=== PATIENT | female | born 1945 | race Two or more races ===

== ENCOUNTER 2024-10-05 12:58 | Emergency (ER) | payer MEDICARE, MEDICAID, SELFPAY ==
[2024-10-05 13:02] VITALS: BP 145/84; PULSE 91; RESP 18; TEMP 37.4; O2SAT 91
[2024-10-05 13:11] VITALS: PULSE 92; RESP 18; O2SAT 95
[2024-10-05 13:28] VITALS: BMI 31.6
--- NOTE | 2024-10-05 13:44 | XR_ITS ---
Examination: Lumbar spine 3 views Technique one AP lateral coned lateral lower lumbar spine 3 views Exam date and time: October 05, 2024 at 1405 hrs. Indications: Patient fell today with injury to lower back, lower back pain. Findings: Prominent osteopenia Lumbar dextroscoliosis 10 degrees Stable alignment transpedicular lumbar fusion L4-S1 compared with July 20, 2023 Depression superior endplate L2 not visualized on the prior study which may be acute Impression: Mild acute appearing depression superior endplate L2, suggest CT scan lumbar spine without contrast follow-up
--- NOTE | 2024-10-05 13:45 | XR_ITS ---
Examination: AP chest single view Technique one AP supine portable chest single view Exam date and time: October 05, 2024 1411 hrs. Indications: Coughing beginning 3 days ago. Findings: Mild enlargement left ventricle Mild opacity left base retrocardiac Ectatic thoracic aorta Multiple ossified joint bodies left shoulder joint Bilateral advanced osteoarthritis glenohumeral joints Impression: Suspicious for early left base pneumonia
[2024-10-05] MEDS: IBUPROFEN TAB 600 MG TABLET PO (13:49)
[2024-10-05] MEDS: ACETAMINOPHEN 325 MG TABLET 650 MG PO (13:50)
[2024-10-05 14:06] LABS: Basophils # (Auto) 0.1 Thou/mm3 (0.0-0.2); Basophils % (Auto) 1 % (0-2.5); Eosinophils # (Auto) 0.1 Thou/mm3 (0.0-0.5); Eosinophils % (Auto) 2 % (0-10); Hematocrit 34.6 % (36.0-46.0); Hemoglobin 11.9 g/dL (12.0-16.0); Immature Granulocytes % (Auto) 1 % (0-0); Immature Granulocytes Auto 0.05 Thou/mm3 (0.00-0.00); Lymphocytes # (Auto) 1.1 Thou/mm3 (1.0-4.8); Lymphocytes % (Auto) 15 % (10-50); Mean Corpuscular HGB Conc 34.4 g/dl (31.0-37.0); Mean Corpuscular Hemoglobin 30.1 pg (25.0-35.0); Mean Corpuscular Volume 87 fL (80-100); Monocytes # (Auto) 0.9 Thou/mm3 (0.0-0.8); Monocytes % (Auto) 12 % (0-12); Neutrophils # (Auto) 5.3 Thou/mm3 (1.8-7.7); Neutrophils % (Auto) 71 % (37-80); Nucleated Red Blood Cell % 0 /100 WBC (0); Platelet Count 187 Thou/mm3 (140-440); RDW Standard Deviation 40.8 fL (36.4-46.3); Red Blood Count 3.96 Miln/mm3 (4.00-5.20); White Blood Count 7.6 Thou/mm3 (3.6-11.0)
--- NOTE | 2024-10-05 14:09 | PD.EDFALL ---
ED Fall Injury RME/HPI General Chief Complaint: Back Pain/Injury Stated Complaint: FALL Time Seen by Provider: 10/05/24 13:27 Arrival date/time: 10/05/24 12:58 RME / HPI RME / HPI Narrative: DR. CONTEH MAIN ED EVALUATION: 78 year old female presents to the Emergency Department brought in by the son with complaint of diffuse back pain secondary to fall today at 4 AM. Pain is described as aching and rated moderate in severity. Movement exacerbate her pain. She also reports dizziness, room spinning . She states she gets dizzy when sitting up or lying down. She states she felt dizzy before falling today. Patient lives with her son and [id number]. Per son, patient was assisted back on the couch after fall and she slept there. At 7 AM, patient got up to the restroom and was able to walk to the restroom and back to the cough per son. But then after that, the son states patient could not get up anymore due to lack of strength and back pain. Patient also reports that she has a productive cough onset 2 weeks. Patient denies any head injury, headache, blood thinners, fevers, chills, sick contacts, diarrhea, or any other symptoms at this time. Denies any flu or COVID vaccines. PMHx: Chronic diffuse back pain, disc surgery 1 year ago. Social Hx: No tobacco, alcohol, or substance use. PCP: Tejas Vee Related Data Home Medications ?Medication ?Instructions ?Recorded ?Confirmed hydrochlorothiazide 50 mg tablet 50 mg PO QDAY 01/10/19 05/24/23 metformin 850 mg tablet 500 mg PO QDAY 05/28/19 05/24/23 Held on 05/24/23. Instructions: Resume on 05/26/23. Hold Metformin x48 hrs. aspirin 81 mg tablet 81 mg PO QDAY 05/24/23 05/24/23 doxazosin 4 mg tablet 4 mg PO QDAY 05/24/23 05/24/23 gabapentin 400 mg capsule 400 mg PO TID 05/24/23 05/24/23 hydrocodone 5 mg-acetaminophen 325 1 tab PO Q8H PRN Pain 05/24/23 05/24/23 mg tablet insulin glargine 100 unit/mL (3 15 unit subcut QAM 05/24/23 05/24/23 mL) subcutaneous pen (Lantus Solostar U-100 Insulin) Allergies Allergy/AdvReac Type Severity Reaction Status Date / Time Penicillins Allergy Rash Verified 05/24/23 10:39 Review of Systems Review of Systems Systems Reviewed: All systems reviewed, normal except as documented Narrative Review of Systems: GEN: No fever, no chills, no weight loss EYES: No discharge, no visual changes, no pain HEENT: No ear pain, no congestion, no sore throat PULM: No shortness of breath, + productive cough, + congestion CV: No chest pain, no dyspnea on exertion, no palpitations GI: No nausea, no vomiting, no diarrhea, no pain, no constipation : No frequency, no urgency and no dysuria MUSC/SKEL: No joint pain, + diffuse back pain (after fall or chronic? see HPI) SKIN: No rash PSYCH: No hallucinations, no depression HEME/LYMPH: No easy bleeding or bruising tendencies NEURO: No weakness, no headache, + dizziness room spinning Past Medical History Past Medical History CARDIAC: Positive Cardiac Disorders and Hypercholesterolemia GASTROINTESTINAL: Positive Gastrointestinal Disorders and Obesity REPRODUCTIVE: Positive Pelvic Inflammatory Disease and Previous Pregnancies MUSCULOSKELETAL: Positive Musculoskeletal Disorders, Arthritis and Osteoporosis ENDOCRINE: Positive Endocrine Disorders and Diabetes Mellitus Type 2 PSYCHO/SOCIAL: Positive Depression and Anxiety OTHER HISTORY: Positive Chicken Pox and Measles Family History FAMILY HISTORY: Positive Family Surgery Surgical History SURGICAL: Positive Ear Surgery, Joint Replacement and Tubal Ligation Social History SMOKING STATUS: Never smoker SUBSTANCE USE: does not use ALCOHOL: Never ED Exam Narrative Physical exam: GENERAL APPEARANCE: AxOx4, generally well-appearing, looks uncomfortable HEENT: NC, AT. MMM. EOMI, clear conjunctiva, oropharynx clear. NECK: Supple without lymphadenopathy. No stiffness or restricted ROM. HEART: Normal rate and regular rhythm, normal S1/S1, no m/r/g LUNGS: CTAB, moving air well. No crackles or wheezes are heard. ABDOMEN: Soft, nontender, nondistended with good bowel sounds heard. BACK: Diffuse tenderness, even without palpation. There is an old mid lumbar surgical scar, clean and well healed in the L2-L5 area. EXTREMITIES: Without cyanosis, clubbing or edema. MUSCULOSKELETAL: FROM of all major joints, no chest tenderness NEUROLOGICAL: Grossly nonfocal. Alert and oriented, moving all 4 extremities. CN not formally tested but appear grossly intact. Observed to ambulate with normal gait. Skin: Warm and dry without any rash. Course Quality Measures none Orders Category Date Time Status XR chest 1V Stat Exams 10/05/24 13:45 Taken XR lumbar spine 2-3V Stat Exams 10/05/24 13:44 Taken CBC Stat Lab 10/05/24 14:00 Completed CMP [Comprehensive Metabolic Panel] Stat Lab 10/05/24 14:00 Completed Acetaminophen Tab [Tylenol Tab] Med 10/05/24 13:44 Discontinued 650 mg PO X1 ONE Ibuprofen Tab [Motrin Tab] Med 10/05/24 13:44 Discontinued 600 mg PO X1 ONE Sodium Chloride 0.9% 1000 ml [Ns] 1,000 ml Med 10/05/24 15:50 Discontinued IV 999 mls/hr Sodium Chloride 0.9% 500 ml [Ns] 500 ml Med 10/05/24 15:50 Discontinued IV 999 mls/hr Vital Signs Vital signs: Vital Signs Temperature 99.4 F 10/05/24 13:02 Pulse Rate 91 10/05/24 13:02 Respiratory Rate 18 10/05/24 13:02 Blood Pressure 145/84 H 10/05/24 13:02 Pulse Oximetry (%) 91 L 10/05/24 13:02 Oxygen Delivery Method Room Air 10/05/24 13:02 Fall MDM Narrative MDM Narrative:: I, Erica Otero am scribing for and in the presence of Dr. Conteh. Patient data External records reviewed:: [facility] previous records (Reviewed last ED visit dated 05/02/24, discharged with the following: Epistaxis) Clinical information provided by:: patient and family (son) Social determinants that could affect healthcare access:: none Patient has the following chronic illnesses:: Chronic diffuse back pain, disc surgery 1 year ago. How is presenting disease/condition affected by chronic disease/condition?: exacerbated by Evaluation data The following diagnostics were reviewed and interpreted by me:: lab results and radiology exam(s) Lab and/or radiology exams considered but not ordered:: none Interpretation Summary: Chest x-ray: my interpretation shows no acute cardiopulmonary findings, no cardiomegaly, no bony abnormalities. Lumbar spine xray: My interpretation shows no acute lumbar fracture, old effusion hardware in L3-5, moderate degenerative changes Medications / Prescriptions Medications or Prescriptions considered but not ordered:: none Medication administrations:: Medication Administration History Discontinued Medications Acetaminophen (Acetaminophen 325 Mg Tablet) 650 mg PO X1 ONE Stop: 10/05/24 13:45 Last Admin: 10/05/24 13:50 Dose: 650 mg Documented By: DARRELL Sodium Chloride (Ns) 1,000 mls @ 999 mls/hr IV .Q1H1M ONE Stop: 10/05/24 16:50 Last Admin: 10/05/24 16:18 Dose: 999 mls/hr Documented By: PIETRO Sodium Chloride (Ns) 500 mls @ 999 mls/hr IV .Q31M ONE Stop: 10/05/24 16:20 Ibuprofen (Ibuprofen Tab 600 Mg Tablet) 600 mg PO X1 ONE Stop: 10/05/24 13:45 Last Admin: 10/05/24 13:49 Dose: 600 mg Documented By: DARRELL see above Consultations Consultation(s) initiated? (list below): No Diagnosis Fall Differential Diagnosis: other (chronic back pain, fall, lumbar sprain) Most likely diagnosis given after review of the tests above:: Back strain Hyperglycemia without ketosis Admission Indicated Admission indicated?: not indicated Admission Request Was there a request for admission?: No Disposition Plan Disposition Plan: Discharge Discharge Attestation Discharge Attestation: The patient and all family members were given an opportunity to ask questions and understood the discharge instructions. Discharge instructions specifically effects, indications for sooner follow up or return to the emergency department, and the expected course of current diagnosis. Patient condition: Stable Discharge Plan Plan Patient Disposition: HOME (Self Care) Patient condition on transfer: Stable Prescriptions/Referrals Prescriptions/Med Rec: No Action metformin 850 mg Tablet 500 mg PO QDAY hydrochlorothiazide 50 mg Tablet 50 mg PO QDAY gabapentin 400 mg Capsule 400 mg PO TID hydrocodone-acetaminophen 5-325 mg Tablet 1 tab PO Q8H PRN (Reason: Pain) doxazosin 4 mg Tablet 4 mg PO QDAY aspirin 81 mg Tablet 81 mg PO QDAY insulin glargine [Lantus Solostar U-100 Insulin] 100 unit/mL (3 mL) Insulin Pen 15 unit SUBCUT QAM Referrals: Tejas Vee MD [Primary Care Provider] - In 1 week Problem List Clinical Impression: Back strain, Hyperglycemia without ketosis Patient/Caregiver Discharge Instructions Education Materials: ED Back Sprain/Strain, ED Diabetes with High Blood Sugar Additional Instructions: Please follow-up with your primary care physician within a week. Return to the Emergency Department as needed. Print Language: Kinyarwanda Stand Alone Forms: Maria Eugenia Award Info., Patient Portal Info Letter
[2024-10-05 14:18] VITALS: BP 142/79; PULSE 88; RESP 18; TEMP 37.7; O2SAT 94
[2024-10-05 14:30] LABS: Alanine Aminotransferase 13 U/L (10-49); Albumin, Serum 4.3 gm/dL (3.4-4.8); Albumin/Globulin Ratio 1.5 (1.2-2.2); Alkaline Phosphatase 65 U/L (46-116); Anion Gap 9 (7-16); Aspartate Amino Transferase < 10 U/L (0-34); BUN/Creatinine Ratio 18 Ratio (12-20); Bilirubin,Total 0.3 mg/dL (0.3-1.2); Blood Urea Nitrogen 21 mg/dL (9-23); Calcium 9.3 mg/dL (8.3-10.6); Calcium (Corrected) 9.3 mg/dL (8.5-10.1); Carbon Dioxide 28.7 mMol/L (20.0-31.0); Chloride 97 mMol/L (98-107); Creatinine (Component) 1.2 mg/dL (0.6-1.3); Estimated Creatinine Clearance 43.2 mL/min (>60); Globulin 2.9 gm/dL (2.3-3.5); Osmolality,Calculated 293 (275-295); Potassium 3.9 mMol/L (3.4-5.1); Sodium 135 mMol/L (136-145); Total Protein 7.2 gm/dL (5.7-8.2); eGFR 47 See Note
[2024-10-05 14:31] LABS: Glucose 456 mg/dL (74-106)
--- NOTE | 2024-10-05 14:52 | PC.NURSE ---
LAB CALLED WITH CRITIAL HIGH BS, BEDSIDE CHECK DONE BS NOTED 435. PT STATES HE HASNT TAKEN HER INSULIN X3 DAYS
[2024-10-05] MEDS: SODIUM CHLORIDE 0.9% 1000 ML 1,000 ML 999 ML IV (16:18)
[2024-10-05 17:34] VITALS: BP 147/90; PULSE 83; RESP 20; TEMP 36.6; O2SAT 95
[2024-10-05 18:28] VITALS: BP 144/70; PULSE 85; RESP 20; TEMP 36.9; O2SAT 95
== END 2024-10-05 18:28 | disposition home or self-care (01) ==
PROVIDERS: Emergency Provider Emergency Medicine; PCP Family Medicine
DX: S39.012A Strain of muscle, fascia and tendon of lower back, initial encounter (principal); R73.9 Hyperglycemia, unspecified
CPT/HCPCS: 36415; 71045; 72100; 80053; 85025; 96360; 96361; 99284; J7030; A9270

== ENCOUNTER → 2024-12-24 | Outpatient (CLI) | payer MEDICARE, MEDICAID, SELFPAY ==
--- NOTE | 2024-12-24 13:41 | XR_ITS ---
Indication: Thoracic spine 3 views Technique one AP lateral coned lateral upper dorsal spine 3 views Date and time: December 24, 2024 1354 hours INDICATIONS: Upper back pain several years FINDINGS: Severe osteopenia Moderate kyphosis dorsal spine secondary to wedging of mid dorsal vertebral bodies Moderate to advanced diffuse thoracic degenerative disc disease No acute fracture Moderate thoracic spondylosis IMPRESSION: Moderate to advanced diffuse thoracic degenerative disc disease
--- NOTE | 2024-12-24 13:41 | XR_ITS ---
Examination: Shoulder,right, 3 views Technique: Shoulder AP internal rotation, AP external rotation, Y view shoulder, 3 views Exam date and time :December 24, 2024 at 1342 hours INDICATIONS: Right shoulder pain 5 days FINDINGS: Advanced osteoarthritis right glenohumeral joint Prominent osteopenia Prominent right shoulder calcific tendinitis No fracture IMPRESSION: Advanced osteoarthritis right glenohumeral joint
== END | disposition home or self-care (01) ==
LOC: CDIM 13:26
PROVIDERS: PCP Family Medicine; Referring Provider Family Medicine; Visit Provider Family Medicine
DX: M51.34 Other intervertebral disc degeneration, thoracic region (principal); M19.011 Primary osteoarthritis, right shoulder
CPT/HCPCS: 72072; 73030

== ENCOUNTER → 2024-12-26 | Outpatient (CLI) | payer MEDICARE, MEDICAID, SELFPAY ==
[2024-12-26 09:42] LABS: Basophils # (Auto) 0.1 Thou/mm3 (0.0-0.2); Basophils % (Auto) 1 % (0-2.5); Eosinophils # (Auto) 0.2 Thou/mm3 (0.0-0.5); Eosinophils % (Auto) 3 % (0-10); Hematocrit 35.2 % (36.0-46.0); Hemoglobin 12.3 g/dL (12.0-16.0); Immature Granulocytes % (Auto) 1 % (0-0); Immature Granulocytes Auto 0.06 Thou/mm3 (0.00-0.00); Lymphocytes # (Auto) 1.5 Thou/mm3 (1.0-4.8); Lymphocytes % (Auto) 19 % (10-50); Mean Corpuscular HGB Conc 34.9 g/dl (31.0-37.0); Mean Corpuscular Hemoglobin 30.2 pg (25.0-35.0); Mean Corpuscular Volume 87 fL (80-100); Monocytes # (Auto) 0.5 Thou/mm3 (0.0-0.8); Monocytes % (Auto) 6 % (0-12); Neutrophils # (Auto) 5.8 Thou/mm3 (1.8-7.7); Neutrophils % (Auto) 71 % (37-80); Nucleated Red Blood Cell % 0 /100 WBC (0); Platelet Count 246 Thou/mm3 (140-440); RDW Standard Deviation 39.4 fL (36.4-46.3); Red Blood Count 4.07 Miln/mm3 (4.00-5.20); White Blood Count 8.2 Thou/mm3 (3.6-11.0)
[2024-12-26 09:43] LABS: Glucose Estimated Average 318 mg/dL (80-131); Hemoglobin A1C 12.7 % Hgb (4.8-6.0)
[2024-12-26 09:48] LABS: Vitamin B12 1038 pg/mL (211-911); Vitamin D 25 Hydroxy Total 19.3 ng/mL (7.3-40.2)
[2024-12-26 10:04] LABS: Alanine Aminotransferase 8 U/L (10-49); Albumin, Serum 4.4 gm/dL (3.4-4.8); Albumin/Globulin Ratio 1.6 (1.2-2.2); Alkaline Phosphatase 57 U/L (46-116); Anion Gap 10 (7-16); Aspartate Amino Transferase 12 U/L (0-34); BUN/Creatinine Ratio 19 Ratio (12-20); Bilirubin,Total 0.6 mg/dL (0.3-1.2); Blood Urea Nitrogen 19 mg/dL (9-23); Calcium 9.2 mg/dL (8.3-10.6); Calcium (Corrected) 9.2 mg/dL (8.5-10.1); Cardiac Risk Estimate 6.3 RATIO (3.7-5.6); Chloride 100 mMol/L (98-107); Cholesterol 200 mg/dL (132-200); Globulin 2.7 gm/dL (2.3-3.5); Glucose 335 mg/dL (74-106); HDL Cholesterol 32 mg/dL (40-60); LDL Cholesterol,Calculated 114 mg/dL (0-130); Osmolality,Calculated 294 (275-295); Potassium 3.5 mMol/L (3.4-5.1); Sodium 140 mMol/L (136-145); Thyroid Stimulating Hormone 0.32 uIU/mL (0.55-4.78); Total Protein 7.1 gm/dL (5.7-8.2); Triglycerides 269 mg/dL (30-150); eGFR 58 See Note
[2024-12-26 10:05] LABS: Syphilis Nonreactive (Nonreactive)
== END | disposition home or self-care (01) ==
LOC: COPL 08:39
PROVIDERS: PCP Family Medicine; Referring Provider Psychiatry & Neurology Neurology; Visit Provider Psychiatry & Neurology Neurology
DX: R41.3 Other amnesia (principal); E11.49 Type 2 diabetes mellitus with other diabetic neurological complication; I10 Essential (primary) hypertension; E78.5 Hyperlipidemia, unspecified
CPT/HCPCS: 36415; 80053; 80061; 82306; 82607; 83036; 84439; 84443; 85025; 86780

== ENCOUNTER → 2025-01-06 | Outpatient (CLI) | payer MEDICARE, MEDICAID, SELFPAY ==
--- NOTE | 2025-01-06 13:30 | XR_ITS ---
Examination: MRI brain without intravenous contrast. Date and time of exam: January 06, 2025 1337 hours Comparison December 14, 2022 INDICATIONS: Increasing memory loss confusion Technique: Multiple axial and sagittal images of the brain obtained. Siemens high-resolution 1.5 Lesly short bore scanners utilized. Sagittal sections, T1-weighted, TR 500, TE 14, are performed. Axial sections proton-density and T2-weighted have been obtained. Inversion recovery axial images, TR 9, 260, TE 111, TI 2500. Diffusion weighted images, axial sections, TR 4800, TE 128, B value 1000 Axial sections, ADC map, TR 4800, TE 128 Findings: Enlargement of the sella turcica is not present. The optic chiasm and infundibular are not remarkable. Prepontine and interpeduncular cisterns are not enlarged. There is no localized enlargement of the medulla or melissa. Fourth ventricle and cerebellar tonsils appear normal in position. No subacute area of hemorrhage density is seen. Mass in the cerebellopontine angle region is not evident. Globes symmetrical. Orbital musculature including medial lateral rectus muscles do not exhibit abnormality. Diffusion-weighted images demonstrate no focus of restricted diffusion. Increased white matter signal prominent Mass effect upon the ventricular system is not identified. Impression: Negative for acute hemorrhage mass effect or midline shift No acute infarct Again noted extensive chronic microvascular white matter change
== END | disposition home or self-care (01) ==
PROVIDERS: PCP Family Medicine; Referring Provider Psychiatry & Neurology Neurology; Visit Provider Psychiatry & Neurology Neurology
DX: R90.82 White matter disease, unspecified (principal)
CPT/HCPCS: 70551

== ENCOUNTER → 2025-07-14 | Outpatient (CLI) | payer MEDICARE, MEDICAID, SELFPAY ==
[2025-07-14 08:42] LABS: Collection Type, Urine Clean Catch
[2025-07-14 09:40] LABS: Basophils # (Auto) 0.1 Thou/mm3 (0.0-0.2); Basophils % (Auto) 1 % (0-2.5); Eosinophils # (Auto) 0.3 Thou/mm3 (0.0-0.5); Eosinophils % (Auto) 4 % (0-10); Hematocrit 37.3 % (36.0-46.0); Hemoglobin 12.2 g/dL (12.0-16.0); Immature Granulocytes Auto 0.05 Thou/mm3 (0.00-0.00); Lymphocytes # (Auto) 1.7 Thou/mm3 (1.0-4.8); Lymphocytes % (Auto) 24 % (10-50); Mean Corpuscular HGB Conc 32.7 g/dl (31.0-37.0); Mean Corpuscular Hemoglobin 30.0 pg (25.0-35.0); Mean Corpuscular Volume 92 fL (80-100); Monocytes # (Auto) 0.5 Thou/mm3 (0.0-0.8); Monocytes % (Auto) 7 % (0-12); Neutrophils # (Auto) 4.6 Thou/mm3 (1.8-7.7); Neutrophils % (Auto) 63 % (37-80); Nucleated Red Blood Cell # 0.00 Thou/mm3 (0.00-0.00); Nucleated Red Blood Cell % 0 /100 WBC (0); Platelet Count 247 Thou/mm3 (140-440); RDW Standard Deviation 41.7 fL (36.4-46.3); Red Blood Count 4.07 Miln/mm3 (4.00-5.20); White Blood Count 7.3 Thou/mm3 (3.6-11.0)
[2025-07-14 09:52] LABS: Bacteria,Urine 1+; Bilirubin,Urine Negative (Negative); Blood,Urine Trace (Negative); Budding Yeast,Urine Present; Clarity,Urine Clear (Clear/Hazy); Color,Urine Lt-Yellow (Lt Yel-Yel); Glucose, Urine 1+ (Negative); Ketones,Urine Negative (Negative); Leukocyte Esterase,Urine Positive (Negative); Nitrite,Urine Positive (Negative); PH,Urine 6.0 (5.0-7.0); Protein,Urine Trace (Neg - Trace); RBC,Urine 11 /hpf (0-3); Specific Gravity,Urine 1.019 (1.001-1.035); Squamous Epithelial Cell,Urine 1 /hpf (0-5); Urobilinogen,Urine Negative mg/dL (0.0-1.0); WBC,Urine 122 /hpf (0-5)
[2025-07-14 09:54] LABS: Culture Indicated,Urine Yes
[2025-07-14 10:08] LABS: Glucose Estimated Average 303 mg/dL (80-131); Hemoglobin A1C 12.2 % Hgb (4.8-6.0)
[2025-07-14 10:16] LABS: Alanine Aminotransferase 10 U/L (10-49); Albumin, Serum 4.4 gm/dL (3.4-4.8); Albumin/Globulin Ratio 1.5 (1.2-2.2); Alkaline Phosphatase 53 U/L (46-116); Anion Gap 11 (7-16); Aspartate Amino Transferase 15 U/L (0-34); BUN/Creatinine Ratio 19 Ratio (12-20); Bilirubin,Total 0.4 mg/dL (0.3-1.2); Blood Urea Nitrogen 17 mg/dL (9-23); Calcium 9.8 mg/dL (8.3-10.6); Calcium (Corrected) 9.8 mg/dL (8.5-10.1); Carbon Dioxide 31.1 mMol/L (20.0-31.0); Cardiac Risk Estimate 6.4 RATIO (3.7-5.6); Chloride 101 mMol/L (98-107); Cholesterol 212 mg/dL (132-200); Creatinine (Component) 0.9 mg/dL (0.6-1.3); Globulin 3.0 gm/dL (2.3-3.5); Glucose 282 mg/dL (74-106); HDL Cholesterol 33 mg/dL (40-60); LDL Cholesterol,Calculated 120 mg/dL (0-130); Osmolality,Calculated 296 (275-295); Potassium 3.5 mMol/L (3.4-5.1); Sodium 143 mMol/L (136-145); Thyroid Stimulating Hormone 0.47 uIU/mL (0.55-4.78); Total Protein 7.4 gm/dL (5.7-8.2); Triglycerides 294 mg/dL (30-150); eGFR > 60 See Note
[2025-07-14 10:32] LABS: Creatinine MALB Rnd Ur 74 mg/dL (30-125); Microalbumin Creat Ratio 54 mg/gCrea (<30); Microalbumin, Random Urine 40 mg/L (0-300)
== END | disposition home or self-care (01) ==
LOC: COPL 07:54
PROVIDERS: PCP Nurse Practitioner Family; Referring Provider Nurse Practitioner Family; Visit Provider Nurse Practitioner Family
DX: Z00.00 Encounter for general adult medical examination without abnormal findings (principal); E03.9 Hypothyroidism, unspecified; E55.9 Vitamin D deficiency, unspecified; N39.0 Urinary tract infection, site not specified; Z71.3 Dietary counseling and surveillance; E11.65 Type 2 diabetes mellitus with hyperglycemia; R10.9 Unspecified abdominal pain; Z13.29 Encounter for screening for other suspected endocrine disorder; Z13.1 Encounter for screening for diabetes mellitus
CPT/HCPCS: 36415; 80053; 80061; 81001; 82043; 82570; 83036; 84443; 85025; 87077; 87086; 87186

== ENCOUNTER → 2025-07-16 | Outpatient (CLI) | payer MEDICARE, MEDICAID, SELFPAY ==
--- NOTE | 2025-07-16 | XR_ITS ---
EXAMINATION: Bone length study, scanogram TECHNIQUE: AP hips knees ankles, 3 views with ruler device Date and time: July 16, 2025, 1204 hours INDICATIONS: Clinical diagnosis leg length discrepancy FINDINGS: The left leg is 5 mm shorter overall within the right leg This is secondary to 5 mm shorter tibia-fibula length on the left Moderate to advanced narrowing medial joint spaces Moderate to advanced narrowing hip joint spaces No fractures IMPRESSION: The left leg is 5 mm shorter overall than the right leg
--- NOTE | 2025-07-16 | XR_ITS ---
Examination: Scoliosis survey 2, views. Technique: AP standing thoracic, AP standing lumbar spine, two views. Exam date and time: July 16, 2025, 1204 hours, comparison December 24, 2024 Scoliosis on clinical examination this week Findings: Severe osteopenia Thoracic dextroscoliosis 12 degrees Thoracolumbar levoscoliosis 8 degrees Lumbar dextroscoliosis 8 degrees Transpedicular lumbar fusion L4-S1 Moderate stool throughout the colon IMPRESSION: Scoliosis as above
== END | disposition home or self-care (01) ==
LOC: CDIM 11:22
PROVIDERS: PCP Nurse Practitioner Family; Referring Provider Nurse Practitioner Family; Visit Provider Nurse Practitioner Family
DX: Z13.9 Encounter for screening, unspecified (principal); M41.84 Other forms of scoliosis, thoracic region; M41.86 Other forms of scoliosis, lumbar region; M41.85 Other forms of scoliosis, thoracolumbar region; M21.764 Unequal limb length (acquired), left fibula
CPT/HCPCS: 72082; 77073